=== PATIENT | male | born 1970 | race Asian ===

== ENCOUNTER 2017-02-17 23:37 | Emergency (ER) | payer SELFPAY ==
--- NOTE | 2017-02-18 03:13 | ED ---
Upper Extremity Pain - HPI Summary HPI Summary: 46M presents with back pain and left hand pain s/p fall on Friday. He has full ROM. He has not taken anything for pain. has bruising to left thumb. He denies any loss of bowel or bladder or saddle anaesthesia. no fever. no weakness. no pain down the legs. no history of back pain. no head injury. no neck pain. no chest pain or SOB. fall was a mechanical fall. pain has been improving. walking makes back feel better. - History of Current Complaint Chief Complaint: EDBackInjuryPain Stated Complaint: FALL Time Seen by Provider: 02/18/17 02:36 PMH/Surg Hx/FS Hx/Imm Hx Endocrine/Hematology History: Denies: Hx Anticoagulant Therapy Cardiovascular History: Denies: Hx Myocardial Infarction Infectious Disease History: No Infectious Disease History: Denies: Traveled Outside the [place] in Last 30 Days - Family History Known Family History: Negative: Diabetes - Social History Alcohol Use: None Substance Use Type: Reports: None Smoking Status (MU): Never Smoked Tobacco Review of Systems Negative: Fever Negative: Chest Pain Negative: Shortness Of Breath Positive: Myalgia - back Positive: Bruising - left thumb All Other Systems Reviewed And Are Negative: Yes Physical Exam Triage Information Reviewed: Yes Vital Signs On Initial Exam: Initial Vitals Temp Pulse Resp BP Pulse Ox 98 F 75 18 131/72 97 02/17/17 23:45 02/17/17 23:45 02/17/17 23:45 02/17/17 23:45 02/17/17 23:45 Vital Signs Reviewed: Yes Appearance: Positive: Well-Appearing Skin: Positive: Warm, Dry, Other - ecchymosis on palmar aspect of left thumb Head/Face: Positive: Normal Head/Face Inspection Eyes: Positive: Normal, Conjunctiva Clear Respiratory/Lung Sounds: Positive: Clear to Auscultation, Breath Sounds Present Cardiovascular: Positive: Normal, RRR Musculoskeletal: Positive: Strength/ROM Intact - back and left hand, Other - neg snuff box tenderness, tenderness T11-L2 on right side of back, no midline tenderness. neg SLR. good pulses Neurological: Positive: Normal Psychiatric: Positive: Normal - [place] Coma Scale Coma Scale Total: 15 Diagnostics - Vital Signs Vital Signs Temp Pulse Resp BP Pulse Ox 02/17/17 23:45 98 F 75 18 131/72 97 - Laboratory Lab Statement: Any lab studies that have been ordered have been reviewed, and results considered in the medical decision making process. - Radiology hand Xray Interpretation: No Acute Changes Radiology Interpretation Completed By: ED Physician Course/Dx - Course Course Of Treatment: 46M presents with back pain and left hand pain s/p fall on Friday. He has full ROM. He has not taken anything for pain. has bruising to left thumb. He denies any loss of bowel or bladder or saddle anaesthesia. no fever. no weakness. no pain down the legs. no history of back pain. no head injury. no neck pain. no chest pain or SOB. fall was a mechanical fall. pain has been improving. walking makes back feel better. on exam has ecchmoysis to palmar aspect of left thumb. neg snuff box tenderness. xray hand read as normal by me and dr pereyra. will place in thumb spica pre-fabricated as precaution. back no midline tenderness. tender on left side of thoracic-lumbar back. neg SLR , patella intact. will treat with ibuprofen. patient understand and agrees with plan. - Diagnoses Differential Diagnosis/HQI/PQRI: Positive: Fracture (Closed), Strain, Sprain Provider Diagnoses: Left hand pain, Back pain Discharge - Discharge Plan Condition: Good Disposition: HOME Patient Education Materials: Back Pain (ED), RICE Therapy (ED) Referrals: [facility] [Outside] Additional Instructions: Take Tylenol or ibuprofen every 6 hours as needed for pain Apply ice, rest, elevate Keep splint on area Establish care with primary to follow up Return to ED if develop any new or worsening symptoms
[2017-02-18 03:22] VITALS: BP 115/76
--- NOTE | 2017-02-18 08:08 | RAD ---
INDICATION: Left hand injury. TECHNIQUE: 4 views of the left hand were obtained. FINDINGS: The bones are in normal alignment. No fracture is seen. Joint spaces appear maintained. IMPRESSION: NO EVIDENCE FOR FRACTURE. IF THE PATIENT'S SYMPTOMS PERSIST, RECOMMEND FOLLOW-UP IMAGING.
== END 2017-02-18 03:19 | disposition home or self-care (01) ==
LOC: ED 23:37
DX: S60.012A Contusion of left thumb without damage to nail, initial encounter (principal); M79.642 Pain in left hand; M54.9 Dorsalgia, unspecified; W19.XXXA Unspecified fall, initial encounter; Y92.9 Unspecified place or not applicable
CPT/HCPCS: 99282